=== PATIENT | female | born 1990 | race Caucasian/White ===

== ENCOUNTER 2016-09-11 12:17 | Emergency (ER) | payer BC ==
[2016-09-11 12:34] VITALS: PULSE 78
--- NOTE | 2016-09-11 13:18 | EDPHY ---
H & P Time Seen by Provider: 09/11/16 12:43 HPI/ROS: CHIEF COMPLAINT: Left wrist injury HISTORY OF PRESENT ILLNESS: 26-year-old female presents to the emergency department complaining of pain in her left wrist. She thinks that she may have injured day doing a specific yoga pose. She has been having pain over last 1 week. She denies any other known trauma or injury. She has pain with certain range of motion. She is right-hand dominant. ROS: Denies pain in her left elbow or shoulder. Denies swelling. Denies fevers. Past Medical/Surgical History: Negative Social History: Single Smoking Status: Never smoked Physical Exam: On examination there is no swelling noted to the left wrist. She has full range of motion of her left wrist. She points to her distal radius as her source of pain. No palpable bony tenderness however. Negative Jerry's test. No rotational deformities noted. Normal sensation to light touch with normal 2 point discrimination. Strong radial pulse at the left wrist. Nontender to palpate the left elbow or shoulder. Constitutional: Initial Vital Signs Temperature (C) 36.8 C 09/11/16 12:31 Heart Rate 78 09/11/16 12:31 Respiratory Rate 18 09/11/16 12:31 Blood Pressure 102/69 09/11/16 12:31 O2 Sat (%) 96 09/11/16 12:31 O2 Delivery Mode Room Air Allergies/Adverse Reactions: No Known Allergies Allergy (Unverified 09/11/16 12:31) Home Medications: Medication Instructions Recorded NK [No Known Home Meds] 09/11/16 MDM/Departure - MDM Procedures: Patient was placed in Velcro wrist splint for comfort and support and examined post application in good placement with normal [employer]ULTING DIRECTOR. ED Course/Re-evaluation: I do not think x-rays are indicated. The patient has no traumatic event. She has full range of motion of her wrist. No palpable bony tenderness. She has full range of motion. I explained to the patient that she could have some tenosynovitis. She was placed in a cock-up wrist splint for comfort and given orthopedic referral. I do not think imaging studies are indicated. - Depart Disposition: Home, Routine, Self-Care Clinical Impression: Left wrist sprain Qualifiers: Encounter type: initial encounter Qualified Code(s): S63.502A - Unspecified sprain of left wrist, initial encounter Condition: Good Instructions: Wrist Sprain (ED) Additional Instructions: Splint for comfort and support. Ibuprofen 400 mg every 8 hours as needed for pain. Follow up with orthopedic hand surgeon in 1 week to recheck. Activity as tolerated. Referrals: Perry Pretty MD [Medical Doctor] - 5-7 days, call for appt. (Orthopedic hand surgeon on-call)
[2016-09-11 13:31] VITALS: BP 101/48; RESP 15; TEMP 98.8; O2SAT 95
== END 2016-09-11 13:31 | disposition home or self-care (01) ==
DX: S63.502A Unspecified sprain of left wrist, initial encounter (principal); X58.XXXA Exposure to other specified factors, initial encounter; Y99.8 Other external cause status; Y93.42 Activity, yoga
CPT/HCPCS: L3807

== ENCOUNTER 2017-04-19 03:30 | Emergency (ER) | payer BC, OTHER ==
[2017-04-19 03:40] VITALS: BP 95/63
[2017-04-19] MEDS ORDERED: PHENAZOPYRIDINE HCL 200 MG TAB PO ONE (04:03)
[2017-04-19] MEDS ORDERED: NITROFURANTOIN MACROBID 100 MG CAP PO ONE (04:26)
[2017-04-19] MEDS ORDERED: NITROFURANTOIN 100MG PREPACK#2 BTL TAKEHOME ONE (04:26)
--- NOTE | 2017-04-19 04:26 | EDPHY ---
H & P Stated Complaint: POS UTI/POLY,ALMA,LOWER ABD Time Seen by Provider: 04/19/17 04:04 HPI/ROS: HPI The patient presents with concern for urinary tract infection. She has had 3 days of lower abdominal pressure like sensation, dysuria, urinary frequency. She has a history of urinary tract infections previously. She has not had any flank pain, nausea, vomiting, fevers or chills. She denies any vaginal discharge. Her symptoms have been constant and getting progressively worse. REVIEW OF SYSTEMS Constitutional: No fever, no chills. Eyes: No discharge. ENT: No sore throat. Cardiovascular: No chest pain, no palpitations. Respiratory: No cough, no shortness of breath. Gastrointestinal: No abdominal pain, no vomiting. Genitourinary: No hematuria. Musculoskeletal: No back pain. Skin: No rashes. Neurological: No headache. PMHx: History of UTI PHYSICAL General Appearance: Alert, no distress Eyes: Pupils equal and round no pallor or injection ENT, Mouth: Mucous membranes moist Respiratory: There are no retractions, lungs are clear to auscultation Cardiovascular: Regular rate and rhythm Gastrointestinal: Abdomen is soft and non-tender, no masses, bowel sounds normal, no flank tenderness Neurological: A&O, moves all extremities Skin: Warm and dry, no rashes Musculoskeletal: Neck is supple non tender Extremities: symmetrical, full range of motion Psychiatric: Patient is oriented X 3, there is no agitation Source: Patient Exam Limitations: No limitations - Personal History LMP (Females 10-55): IUD In Place Current Tetanus Diphtheria and Acellular Pertussis (TDAP): Unsure - Medical/Surgical History Hx Asthma: No Hx Chronic Respiratory Disease: No Hx Diabetes: No Hx Cardiac Disease: No Hx Renal Disease: No Hx Cirrhosis: No Hx Alcoholism: No Hx HIV/AIDS: No Hx Splenectomy or Spleen Trauma: No Other PMH: denies - Social History Smoking Status: Never smoked Constitutional: Initial Vital Signs Temperature (C) 36.4 C 04/19/17 03:38 Heart Rate 75 04/19/17 03:38 Respiratory Rate 18 04/19/17 03:38 Blood Pressure 95/63 L 04/19/17 03:38 O2 Sat (%) 99 04/19/17 03:38 O2 Delivery Mode Room Air Allergies/Adverse Reactions: No Known Allergies Allergy (Unverified 09/11/16 12:31) Home Medications: Medication Instructions Recorded Nitrofurantoin Macrobid [Macrobid] 100 mg PO BID #14 cap 04/19/17 Medical Decision Making Differential Diagnosis: This is a 26-year-old female who presents with 3 days of progressive dysuria, urgency, suprapubic pressure. On exam, she is well-appearing, has no abdominal or flank tenderness. She is given peridium here. UA was checked and is consistent with urinary tract infection. I will treat her with Macrobid. She will be discharged home. Differential diagnosis considered include cystitis, pyelonephritis, likely appendicitis. - Data Points Laboratory Results: 04/19/17 04/19/17 03:44 03:44 Urine Color PALE YELLOW Urine Appearance HAZY Urine pH 6.0 (5.0-7.5) Ur Specific [place] 1.002 (1.002-1.030) Urine Protein NEGATIVE (NEGATIVE) Urine Ketones NEGATIVE (NEGATIVE) Urine Blood 2+ H (NEGATIVE) Urine Nitrate NEGATIVE (NEGATIVE) Urine Bilirubin NEGATIVE (NEGATIVE) Urine Urobilinogen NEGATIVE EU EU (0.2-1.0) Ur Leukocyte Esterase 3+ H (NEGATIVE) Urine RBC 1-3 /hpf /hpf (0-3) Urine WBC 50-182 /hpf H /hpf (0-3) Ur Epithelial Cells TRACE /lpf /lpf (NONE-1+) Urine Bacteria 1+ /hpf H /hpf (NONE SEEN) Urine Mucus TRACE /lpf /lpf (NONE-1+) Urine Glucose NEGATIVE (NEGATIVE) Urine Test NEGATIVE Medications Given: Discontinued Medications Nitrofurantoin (Macrobid 100mg Prepack#2) 1 btl TAKEHOME EDNOW ONE PRN Reason: Protocol Stop: 04/19/17 04:27 Last Admin: 04/19/17 04:33 Dose: 1 btl Nitrofurantoin Macrocrystals (Macrobid) 100 mg PO EDNOW ONE PRN Reason: Protocol Stop: 04/19/17 04:27 Last Admin: 04/19/17 04:33 Dose: 100 mg Phenazopyridine HCl (Pyridium) 200 mg PO EDNOW ONE Stop: 04/19/17 04:04 Last Admin: 04/19/17 04:04 Dose: 200 mg Departure - Departure Disposition: Home, Routine, Self-Care Clinical Impression: Urinary tract infection Condition: Good Instructions: Urinary Tract Infection in Women (ED) Referrals: NONE *PRIMARY CARE P,. [Primary Care Provider] - As per Instructions Prescriptions: Nitrofurantoin Macrobid [Macrobid] 100 mg PO BID #14 cap
[2017-04-19 04:38] VITALS: PULSE 74; RESP 16; TEMP 97.9; O2SAT 96
== END 2017-04-19 04:38 | disposition home or self-care (01) ==
DX: N39.0 Urinary tract infection, site not specified (principal); B96.89 Other specified bacterial agents as the cause of diseases classified elsewhere

== ENCOUNTER 2017-05-30 21:17 | Emergency (ER) | payer OTHER ==
[2017-05-30 21:20] VITALS: BP 106/72; PULSE 80; RESP 16; TEMP 97.7; O2SAT 97
--- NOTE | 2017-05-30 21:25 | EDPHY ---
H & P Stated Complaint: UTI symptoms since yesterday Time Seen by Provider: 05/30/17 21:24 - Personal History LMP (Females 10-55): Now Current Tetanus/Diphtheria Vaccine: Unsure - Medical/Surgical History Hx Asthma: No Hx Chronic Respiratory Disease: No Hx Diabetes: No Hx Cardiac Disease: No Hx Renal Disease: No Hx Cirrhosis: No Hx Alcoholism: No Hx HIV/AIDS: No Hx Splenectomy or Spleen Trauma: No Other PMH: denies - Social History Smoking Status: Never smoked Constitutional: Initial Vital Signs Temperature (C) 36.5 C 05/30/17 21:18 Heart Rate 80 05/30/17 21:18 Respiratory Rate 16 05/30/17 21:18 Blood Pressure 106/72 05/30/17 21:18 O2 Sat (%) 97 05/30/17 21:18 O2 Delivery Mode Room Air Allergies/Adverse Reactions: No Known Allergies Allergy (Verified 05/30/17 21:20) Home Medications: Medication Instructions Recorded Cephalexin [Keflex (RX)] 500 mg PO TID #30 cap 05/30/17 Phenazopyridine HCl [Pyridium] 200 mg PO TID #6 tab 05/30/17 Medical Decision Making ED Course/Re-evaluation: CHIEF COMPLAINT: "I have a UTI I think" HISTORY OF PRESENT ILLNESS: The patient is a 26 y/o female who arrives with her partner complaining of UTI symptoms for the last 2 days. She complains of dysuria, polyuria, and mild suprapubic pain that's worse during urination. She had similar symptoms 1.5 month ago and was diagnosed with a UTI. Those symptoms resolved with Macrobid. She denies flank pain, back pain, fever, chills, vomiting, diarrhea, or any other symptoms. REVIEW OF SYSTEMS: A 10 point review of systems was performed and is negative with the exception of the elements mentioned in the history of present illness. PHYSICAL EXAM: HR, BP, O2 Sat, RR. Temp noted General Appearance: Alert, well hydrated, appropriate, and non-toxic appearing. Head: Atraumatic without scalp tenderness or obvious injury Eyes: Pupils equal, round, reactive to light and accommodation, EOMI, no trauma , no injection. Nose: Atraumatic, no rhinorrhea, clear. Throat: Mucus membranes moist. Neck: Supple Respiratory: No distress. Cardiovascular: Good capillary refill all extremities. Gastrointestinal: Abdomen is soft, nontender, non-distended, no masses, no rebound, no guarding, no peritoneal signs. Musculoskeletal: Normal active ROM of all extremities, atraumatic. Neurological: Alert, appropriate, and interactive. Nonfocal. Skin: No rashes, good turgor, no nodules on palpation. Past medical history: UTIs Past surgical history: Noncontributory Family history: Noncontributory Social history: Partner at bedside. Employed. DIFFERENTIAL DIAGNOSIS: The differential diagnosis for the patient's symptoms included but was not limited to urinary tract infection, viral syndrome, pyelonephritis, ovarian cyst, and sepsis. MEDICAL DECISION MAKING: This is a normally healthy 26 y/o female with a history of UTIs who presents with a 2-day history of UTI symptoms. She denies systemic infectious symptoms. Abdomen is benign. She is afebrile here. UA indicates UTI. Patient will be discharged on Keflex with standard UTI care and follow up instructions. Return precautions discussed. She is comfortable with this plan. - Data Points Laboratory Results: 05/30/17 21:29 Urine Color Pending Urine Appearance Pending Urine pH Pending Ur Specific [place] Pending Urine Protein Pending Urine Ketones Pending Urine Blood Pending Urine Nitrate Pending Urine Bilirubin Pending Urine Urobilinogen Pending Ur Leukocyte Esterase Pending Urine RBC Pending Urine WBC Pending Ur Epithelial Cells Pending Urine Glucose Pending Medications Given: Discontinued Medications Cephalexin HCl (Keflex) 500 mg PO EDNOW ONE PRN Reason: Protocol Stop: 05/30/17 21:31 Last Admin: 05/30/17 21:41 Dose: 500 mg Phenazopyridine HCl (Pyridium) 200 mg PO EDNOW ONE Stop: 05/30/17 21:32 Last Admin: 05/30/17 21:41 Dose: 200 mg Departure - Departure Disposition: Home, Routine, Self-Care Clinical Impression: UTI (urinary tract infection) Qualifiers: Urinary tract infection type: acute cystitis Hematuria presence: without hematuria Qualified Code(s): N30.00 - Acute cystitis without hematuria Condition: Good Instructions: Cephalexin (By mouth), Phenazopyridine (By mouth), Urinary Tract Infection in Women (ED) Additional Instructions: 1. Take Keflex as prescribed. Be sure to complete the entire prescription. 2. Use Pyridium as prescribed for urinary pain. 3. Use Tylenol and ibuprofen as directed on the packaging if needed for pain or fever over the next few days. 4. Follow up with your primary care provider for unimproved symptoms over the next 2-3 days. 5. Return to the ED for severe abdominal or back pain, uncontrollable vomiting, or other worsening of condition. Referrals: Maritza Gr MD [Medical Doctor] - As per Instructions Prescriptions: Cephalexin [Keflex (RX)] 500 mg PO TID #30 cap Phenazopyridine HCl [Pyridium] 200 mg PO TID #6 tab Report Scribed for: Francesco Baker Report Scribed by: Monica العراقي Date of Report: 05/30/17 Time of Report: 21:30
[2017-05-30] MEDS ORDERED: CEPHALEXIN 500 MG CAP PO ONE (21:30)
[2017-05-30] MEDS ORDERED: PHENAZOPYRIDINE HCL 200 MG TAB PO ONE (21:31)
== END 2017-05-30 22:15 | disposition home or self-care (01) ==
DX: N30.00 Acute cystitis without hematuria (principal)